=== PATIENT | male | born 1960 | race Caucasian/White ===

== ENCOUNTER → 2017-09-29 | Outpatient (REF) | LOC: M SMT 10:47 | DX: M54.5 Low back pain (principal) ==

== ENCOUNTER → 2021-08-12 | Outpatient (REF) | payer MEDICARE, BC ==
[2021-08-12 14:41] LABS: APPEARANCE, URINE CLEAR (CLEAR); BACTERIA, URINE AUTO NEGATIVE (NEGATIVE); BILIRUBIN, URINE AUTO NEGATIVE (NEGATIVE); BLOOD, URINE BLOOD NEGATIVE (NEGATIVE); COLOR, URINE YELLOW (YELLOW); GLUCOSE, URINE (UA) AUTO NEGATIVE (NEGATIVE); KETONE, URINE AUTO NEGATIVE (NEGATIVE); LEUKOCYTE ESTERASE, URINE AUTO NEGATIVE (NEGATIVE); NITRITE, URINE AUTO NEGATIVE (NEGATIVE); PROTEIN, URINE AUTO NEGATIVE (NEGATIVE); RBC, URINE AUTO 0 /HPF (0-3); SPECIFIC GRAVITY URINE AUTO 1.016 (1.002-1.035); SQUAMOUS EPITHELIAL CELL UR AU 0 /HPF (0-6); UROBILINOGEN, URINE AUTO 0.2 mg/dL (0.0-2.0); WBC, URINE AUTO 1 /HPF (0-3)
== END ==
LOC: M SMT 13:19
PROVIDERS: ATTEND Physician Assistant
DX: R35.1 Nocturia (principal)
CPT/HCPCS: 51798; 81001; 87086; G0463

== ENCOUNTER → 2023-02-17 | Outpatient (REF) | payer MEDICARE ==
[2023-02-17 17:35] LABS: CREATININE, URINE 116.9 MG/DL; MALB URINE SIEMENS < 3.0 MG/L; MAU/CREAT RATIO 2.5 MCG/MG (0.0-30.0)
== END ==
LOC: M LAB REF 16:46
PROVIDERS: ATTEND Nurse Practitioner Family
DX: E11.65 Type 2 diabetes mellitus with hyperglycemia (principal)

== ENCOUNTER → 2024-05-12 | Outpatient (REF) | payer MEDICARE ==
[2024-05-12 17:58] LABS: PERCENT SATURATION 8.5 % (19.7-50.0)
[2024-05-12 17:59] LABS: FERRITIN 7.5 NG/ML (10.5-307.3)
== END ==
LOC: M LAB REF 17:25
PROVIDERS: ATTEND Internal Medicine Nephrology
DX: N18.9 Chronic kidney disease, unspecified (principal); D63.1 Anemia in chronic kidney disease

== ENCOUNTER 2024-06-08 12:13 | Outpatient (CLI) | payer MEDICARE ==
[~2024-06-08] VITALS: Ht 172.7 cm; Wt 136.6 kg
[~2024-06-08 12:13] MED LIST: ALBUTEROL SULFATE 2.5MG/0.5ML INH NEB SOLN INH PRN; EPINEPHrine INJ 1 MG/ML 1ML AMP IM PRN; diphenhydrAMINE 50MG/ML VIAL IV PRN; methylPREDNISolone 125MG 2ML VIAL IV PRN
[2024-06-08 12:50] VITALS: BP 130/60; O2SAT 100
[2024-06-08] MEDS: FERRIC CARBOXYMALTOSE 750 MG (VIAL MATE) IN 100ML NS IV ONE (13:17)
[2024-06-08 14:00] VITALS: BP 166/72; O2SAT 100
[2024-06-08 14:27] VITALS: BP 145/69; O2SAT 99
== END 2024-06-08 14:20 ==
LOC: M INFU 12:13
PROVIDERS: ATTEND Internal Medicine Nephrology
DX: N18.32 Chronic kidney disease, stage 3b (principal); D63.1 Anemia in chronic kidney disease; E61.1 Iron deficiency
CPT/HCPCS: 96365; J1439

== ENCOUNTER 2024-06-15 12:15 | Outpatient (CLI) | payer MEDICARE ==
[~2024-06-15] VITALS: Ht 172.7 cm; Wt 136.4 kg
[2024-06-15 13:00] VITALS: BP 128/61; O2SAT 99
[2024-06-15] MEDS ORDERED: NS 1,000 ML IV SCH (13:00)
[2024-06-15] MEDS: FERRIC CARBOXYMALTOSE 750 MG (VIAL MATE) IN 100ML NS IV ONE (13:08)
[2024-06-15 14:03] VITALS: BP 126/72; O2SAT 100
== END 2024-06-15 14:05 ==
LOC: M INFU 12:15
PROVIDERS: ATTEND Internal Medicine Nephrology
DX: E61.1 Iron deficiency (principal); D63.1 Anemia in chronic kidney disease; N18.32 Chronic kidney disease, stage 3b
CPT/HCPCS: 96365; J1439

== ENCOUNTER → 2024-08-19 | Outpatient (REF) | payer MEDICARE ==
[2024-08-19 17:58] LABS: PERCENT SATURATION 15.7 % (19.7-50.0)
[2024-08-19 18:00] LABS: FERRITIN 31.1 NG/ML (10.5-307.3)
== END ==
LOC: M LAB REF 17:01
PROVIDERS: ATTEND Internal Medicine Nephrology
DX: N18.9 Chronic kidney disease, unspecified (principal); D63.1 Anemia in chronic kidney disease

== ENCOUNTER 2024-10-21 08:32 | Outpatient (CLI) | payer MEDICARE ==
[~2024-10-21] VITALS: Ht 172.7 cm; Wt 136.0 kg
[2024-10-21 08:45] VITALS: BP 128/66; O2SAT 97
[2024-10-21] MEDS: NS (Normal Saline) 0.9% 1,000 ML IV SCH (09:00)
[2024-10-21] MEDS: IRON SUCROSE 300 MG in NS 250 ML OVER 90 MIN. IV ONE (09:06)
== END 2024-10-21 10:40 | disposition home or self-care (01) ==
LOC: M INFU 08:32
PROVIDERS: ATTEND Internal Medicine Nephrology
DX: E61.1 Iron deficiency (principal)
CPT/HCPCS: 96365; 96366; J1756

== ENCOUNTER 2024-11-04 07:35 | Outpatient (CLI) | payer MEDICARE ==
[~2024-11-04] VITALS: Ht 172.7 cm; Wt 136.3 kg
[~2024-11-04 07:35] MED LIST changes: +NS (Normal Saline) 0.9% 1,000 ML IV SCH
[2024-11-04 07:40] VITALS: BP 166/63; O2SAT 97
[2024-11-04] MEDS: IRON SUCROSE 300 MG in NS 250 ML OVER 90 MIN. IV ONE (08:29)
[2024-11-04 10:00] VITALS: BP 123/82; O2SAT 99
== END 2024-11-04 10:15 ==
LOC: M INFU 07:35
PROVIDERS: ATTEND Internal Medicine Nephrology
DX: E61.1 Iron deficiency (principal)
CPT/HCPCS: 96365; 96366; J1756

== ENCOUNTER 2024-11-11 08:37 | Outpatient (CLI) | payer MEDICARE ==
[~2024-11-11] VITALS: Ht 172.7 cm; Wt 136.0 kg
[~2024-11-11 08:37] MED LIST changes: -NS (Normal Saline) 0.9% 1,000 ML IV SCH
[2024-11-11 08:55] VITALS: BP 136/71; O2SAT 98
[2024-11-11] MEDS: IRON SUCROSE 300 MG in NS 250 ML OVER 90 MIN. IV ONE (09:09)
[2024-11-11 10:49] VITALS: BP 128/58; O2SAT 100
== END 2024-11-11 10:50 | disposition home or self-care (01) ==
LOC: M INFU 08:37
PROVIDERS: ATTEND Internal Medicine Nephrology
DX: E61.1 Iron deficiency (principal)
CPT/HCPCS: 96365; 96366; J1756

== ENCOUNTER → 2024-12-09 | Outpatient (REF) | payer MEDICARE ==
[2024-12-09 19:24] LABS: FERRITIN 108.6 NG/ML (10.5-307.3)
== END ==
LOC: M LAB REF 17:17
PROVIDERS: ATTEND Internal Medicine Nephrology
DX: N18.9 Chronic kidney disease, unspecified (principal); D63.1 Anemia in chronic kidney disease